=== PATIENT | male | born 1935 | race Caucasian/White ===

== ENCOUNTER 2017-02-09 10:09 | Inpatient (IN) ==
[2017-02-09] MEDS ORDERED: SALINE FLUSH 10ml SYRINGE IVF PRN (10:37)
[2017-02-09] MEDS: SALINE FLUSH 10ml SYRINGE IVF PRN (10:39)
--- NOTE | 2017-02-09 11:05 | Emergency Department Report ---
General Adult HPI - General Chief complaint: Chest Pain Stated complaint: cp Time Seen by Provider: 02/09/17 10:15 Source: patient, family Mode of arrival: ambulatory Limitations: no limitations - History of Present Illness HPI narrative: 81-year-old male presents to the emergency department with a chief complaint of intermittent episodes of chest discomfort. Patient states that he 1st began expressing these episodes in 2013 and they have become more frequent. Patient is currently asymptomatic. Patient states that his pain improves with nitroglycerin. Patient describes the pain as a sharp pain that is located in the lower center chest without radiation. Patient is currently being worked up for anemia secondary to GI bleeding by Dr. Holland. Patient was transfused 1 unit of packed red blood cells yesterday and has returned to his pre- transfusion hemoglobin level and less than 12 hours. Patient notes saying dark colored stool with bright red blood noted a few days ago. He states of bright red blood has resolved. No other complaints or associated symptoms. - Related Data Home Medications Medication Instructions Recorded Confirmed Levothyroxine Sodium 88 mcg PO ACB #0 tab 09/09/14 02/09/17 Tamsulosin HCl 0.4 mg PO HS #0 cap 09/09/14 02/09/17 Nitroglycerin [Nitrostat] 0.4 mg SL Q5MIN PRN #0 tab 11/08/15 02/09/17 Aspirin [Aspir 81] 1 tab PO DAILY #90 tab 11/22/15 02/09/17 diltiazem ER 180 mg 180 mg PO BID cap 02/07/17 02/09/17 capsule,extended release furosemide 20 mg tablet 20 mg PO QAM 02/07/17 02/09/17 Fluticasone Nasal [place] [Flonase] 1 spray LISA DAILY PRN 02/09/17 02/09/17 Allergies Allergy/AdvReac Type Severity Reaction Status Date / Time Penicillins Allergy Unknown Verified 02/09/17 10:49 Sulfa (Sulfonamide Allergy Unknown Verified 02/09/17 10:49 Antibiotics) citric acid AdvReac Intermediate Verified 02/09/17 10:49 caffeine AdvReac Verified 02/09/17 10:49 milk AdvReac Verified 02/09/17 10:49 Review of Systems Constitutional: Denies: fever, chills Eyes: Denies: eye discharge, vision change ENT: Denies: ear pain, throat pain Cardiovascular: Reports: chest pain (resolved.). Denies: palpitations, dyspnea on exertion Respiratory: Denies: cough, dyspnea Gastrointestinal: Denies: abdominal pain, nausea, vomiting, diarrhea, hematemesis Genitourinary: Denies: urgency, dysuria Musculoskeletal: Denies: back pain, joint swelling Integumentary: Denies: erythema, rash Neurological: Denies: headache, numbness, paresthesias Psychiatric: Denies: anxiety, depression, suicidal thoughts Endocrine: Denies: fatigue, heat or cold intolerance Hematological/Lymphatic: Denies: easy bleeding, easy bruising Allergic/Immunologic: Denies: facial swelling, urticaria PFSH Patient Stated Medical History Cataracts Yes: BILATERAL Hearing Loss Yes Gastrointestinal Bleeding Yes Hx Benign Prostatic Yes Hyperplasia Clinic Medical History (Last Updated 02/09/17 @ 14:30 by Marco Cheatham DO) GERD (gastroesophageal reflux disease) (Acute Medical) Coronary artery disease Surgical History: 1) Hernia Repair 2001. 2) Open Heart Surgery - 08/19. 3) Heart Millie - 08/19/2014 Family History: Family History Mother Diabetes Heart attack Heart failure HTN (hypertension) High cholesterol Sister Diabetes Smoking status: Former smoker Substance use type: does not use Alcohol intake frequency: does not drink Physical Exam - Limitations Limitations: no limitations - General General appearance: alert, in no apparent distress - Normal Exams: Head:: Normocephalic without trauma Eyes:: Pupils are PERRLA w/ EOMI, No scleral icterus, irritation, or foreign bodies noted ENMT:: No facial trauma, nasal exudates, pharyngeal erythema, or exudates are noted Dental: No fractured, loose, or missing teeth noted Neck:: Full range of motion, without adenopathy, JVD, bruits or thyromegaly Chest/Respirations:: Clear all mccollum, with good airflow, and symmetry bilaterally Cardiovascular:: Regular rate and rhythm, without murmur or gallop, Pulses 2+ all extremities, capillary refill, <2 seconds all extremities Abdomen:: Bowel sounds positive, soft, non-tender, non-distended, no hepatosplenomegaly, masses or bruits noted Lymphatic:: No lymphadenopathy, or lymphedema noted Musculoskeletal:: No tenderness, or deformity noted, good range of motion, all extremities Integumentary:: No rashes, hives, or bruising noted, hair and nails, without abnormality Neurological:: Patient is alert, and oriented, cranial nerves, motor/sensory/ cerebellar, exams w/o gross deficits, to observation Psychiatric:: Patient exhibits, appropriate attention, emotion and affect Course Course Narrative: Dr. Holland presents to the emergency department to evaluate the patient. Dr. Holland performs rectal exam which contained dark tarry stool with heme-positive characteristic. He remains pain-free in the emergency department. Protonix 40 mg IV times one was given. Patient is discussed with his powered bridge specialist both cardiology (Dr. Perez) and general surgery both recommended admission to the hospital to Dr. Fuller the hospitalist with them as consultants. Patient is in agreement with the current plan of management. He is admitted to the hospital in improved condition. Aspirin was not given due to the acute GI bleeding. Patient's EKG is unchanged from comparison EKG. His troponin is negative. He' ll be admitted to the hospital for further evaluation and treatment. Vital Signs Temperature 97.8 F 02/09/17 10:13 Pulse Rate 97 02/09/17 10:13 Respiratory Rate 16 02/09/17 10:13 Blood Pressure 163/72 H 02/09/17 10:13 Pulse Oximetry 96 02/09/17 10:13 Temperature 97.8 F 02/09/17 11:25 Pulse Rate 94 02/09/17 13:45 Respiratory Rate 25 H 02/09/17 13:45 Blood Pressure 157/78 H 02/09/17 12:04 Pulse Oximetry 98 02/09/17 13:45 Medical Decision Making - MDM Narrative Medical decision making narrative: Labs/imaging were discussed in detail with the patient and family and questions are answered. Patient is given Protonix 40 mg IV 1 in the emergency Department. Patient remains pain-free during his emergency department stay. Patient is admitted to the service of the hospitalist Dr. Fuller after who is in agreement with the current plan of management. Patient was discussed with Dr. Holland of general surgery as well as Dr. Perez of cardiology both who recommends admission to the hospitalist and they will see the patient in consultation. Aspirin was not able to be given due to the patient's active GI bleed. Accepting and consulting physicians are in agreement with the current plan of management. Patient is admitted to the hospital in improved condition for further evaluation and treatment. - Differential Diagnosis ACS, Chest Pain, GI BLEED, PUD - Lab Data Result diagrams: 02/09/17 10:39 02/09/17 10:39 Lab Results 02/09/17 02/09/17 02/09/17 Range/Units 10:38 10:39 10:39 WBC 11.9 H (4.5-11.0) T/MM3 RBC 2.41 L (4.50-5.90) M/MM3 Hgb 7.3 L (13.5-17.5) GM/DL Hct 22.9 L (41-53) % MCV 95.0 (80-100) UM3 MCH 30.3 (26-34) UUG MCHC 31.9 (31-37) GM/DL RDW Std Deviation 46.0 (36.9-50.2) FL Plt Count 185 (130-400) T/MM3 MPV 9.9 (9.4-12.4) UM3 Immature Gran % (Auto) 2.1 H (0.0-0.5) % Neut % (Auto) 68.0 H (33-66) % Lymph % (Auto) 19.0 L (23-45) % Cache % (Auto) 7.0 (0-9.0) % Eos % (Auto) 2.9 (0-4) % Baso % (Auto) 1.0 (0-2) % Neut # 8.1 H (1.8-7.7) T/MM3 Lymph # 2.3 (1-4.8) T/MM3 Cache # 0.8 (0-0.8) T/MM3 Eos # 0.4 (0-0.5) T/MM3 Baso # 0.1 (0-0.2) T/MM3 Abs Immat Gran (auto) 0.25 H (0.00-0.03) T/MM3 INR (0.99-1.21) APTT (24-36) SEC Turbidity 20 (0-20) Sodium 145 H (134-144) MEQ/L Potassium 4.1 (3.6-5) MEQ/L Chloride 109 H (98-107) MEQ/L Carbon Dioxide 25 (22-30) MEQ/L Anion Gap 11 (5-15) MEQ/L BUN 22.0 H (9-20) MG/DL Creatinine 1.1 (0.8-1.5) MG/DL GFR Calculation 65 BUN/Creatinine Ratio 20 (6-26) RATIO Glucose 101 (75-110) MG/DL Calculated Osmolality 282 H (261-280) MOSM/KG Calcium 9.5 (8.4-10.2) MG/DL Total Bilirubin 0.30 (0.20-1.30) MG/DL Icterus Index 2 (0-7) AST 19 (17-59) U/L ALT 29 (21-72) U/L Alkaline Phosphatase 61 (38-126) U/L Troponin I 0.027 (0-0.12) ng/ml Total Protein 6.0 L (6.3-8.2) G/DL Albumin 3.7 (3.5-5.0) G/DL Globulin 2.3 L (2.4-3.6) G/DL Albumin/Globulin Ratio 1.6 (1.1-2.2) RATIO Lipase 174 (23-300) U/L Specimen Hemolysis 15 (0-25) Ur Collection Type Urine Color (YELLOW) Urine Clarity Urine pH (5.0-8.0) Ur Specific [place] (1.015-1.025) Urine Protein (NEGATIVE) Urine Glucose (UA) (NEGATIVE) Urine Ketones (NEGATIVE) Urine Occult Blood (NEGATIVE) Urine Nitrate (NEGATIVE) Urine Bilirubin (NEGATIVE) Urine Urobilinogen (NORMAL) EU/DL Ur Leukocyte Esterase (NEGATIVE) Urinalysis Comment 02/09/17 02/09/17 Range/Units 10:39 10:55 WBC (4.5-11.0) T/MM3 RBC (4.50-5.90) M/MM3 Hgb (13.5-17.5) GM/DL Hct (41-53) % MCV (80-100) UM3 MCH (26-34) UUG MCHC (31-37) GM/DL RDW Std Deviation (36.9-50.2) FL Plt Count (130-400) T/MM3 MPV (9.4-12.4) UM3 Immature Gran % (Auto) (0.0-0.5) % Neut % (Auto) (33-66) % Lymph % (Auto) (23-45) % Cache % (Auto) (0-9.0) % Eos % (Auto) (0-4) % Baso % (Auto) (0-2) % Neut # (1.8-7.7) T/MM3 Lymph # (1-4.8) T/MM3 Cache # (0-0.8) T/MM3 Eos # (0-0.5) T/MM3 Baso # (0-0.2) T/MM3 Abs Immat Gran (auto) (0.00-0.03) T/MM3 INR 1.00 (0.99-1.21) APTT 28.6 (24-36) SEC Turbidity (0-20) Sodium (134-144) MEQ/L Potassium (3.6-5) MEQ/L Chloride (98-107) MEQ/L Carbon Dioxide (22-30) MEQ/L Anion Gap (5-15) MEQ/L BUN (9-20) MG/DL Creatinine (0.8-1.5) MG/DL GFR Calculation BUN/Creatinine Ratio (6-26) RATIO Glucose (75-110) MG/DL Calculated Osmolality (261-280) MOSM/KG Calcium (8.4-10.2) MG/DL Total Bilirubin (0.20-1.30) MG/DL Icterus Index (0-7) AST (17-59) U/L ALT (21-72) U/L Alkaline Phosphatase (38-126) U/L Troponin I (0-0.12) ng/ml Total Protein (6.3-8.2) G/DL Albumin (3.5-5.0) G/DL Globulin (2.4-3.6) G/DL Albumin/Globulin Ratio (1.1-2.2) RATIO Lipase (23-300) U/L Specimen Hemolysis (0-25) Ur Collection Type Urine, clean catch Urine Color Yellow (YELLOW) Urine Clarity Clear Urine pH 5.5 (5.0-8.0) Ur Specific [place] 1.015 (1.015-1.025) Urine Protein Negative (NEGATIVE) Urine Glucose (UA) Negative (NEGATIVE) Urine Ketones Negative (NEGATIVE) Urine Occult Blood Negative (NEGATIVE) Urine Nitrate Negative (NEGATIVE) Urine Bilirubin Negative (NEGATIVE) Urine Urobilinogen 0.2 (NORMAL) EU/DL Ur Leukocyte Esterase Negative (NEGATIVE) Urinalysis Comment Microscopic not ind. - Radiology Data CXR - Negative. - EKG Data EKG #1 EKG results narrative: Sinus rhythm. 71 bpm. Left bundle branch block. Left axis deviation. No STEMI criteria. EKG is unchanged from 11/22/2015. Disposition Clinical Impression: Chest pain Qualifiers: Chest pain type: other chest pain Qualified Code(s): R07.89 - Other chest pain GI bleed Qualifiers: GI bleed type/associated pathology: unspecified gastrointestinal hemorrhage type Qualified Code(s): K92.2 - Gastrointestinal hemorrhage, unspecified Disposition: 02 To [facility] [place] Acute Care Condition: Improved Time of Disposition: 11:45 (Admit: Dr. Fuller) - Seen By: physician
[2017-02-09] MEDS ORDERED: PANTOPRAZOLE 40 MG INJECTION IVP ONE (12:54)
[2017-02-09] MEDS ORDERED: ONDANSETRON 4 MG/2 ML INJECTION IVP PRN (14:18)
[2017-02-09] MEDS ORDERED: NITROGLYCERIN 0.4 MG SUBLINGUAL TABLET SL PRN ×2 (14:29→18:43)
[2017-02-09] MEDS ORDERED: FLUTICASONE NASAL SPRAY 50mcg EA NOSTRIL PRN (14:29)
--- NOTE | 2017-02-09 15:55 | History & Physical Report ---
<Heena Sunshine - Last Filed: 02/09/17 15:23> History of Present Illness Date: 02/09/17 1523 Chief complaint: GI bleed HPI: Jeffrey Moore is a pleasant 81-year-old male who presented to [facility] [place], [place] emergency department today, 02/09/17, for evaluation of intermittent chest pain and bloody stools. He reports that on 02/04/17 he had multiple, bright red liquid stools which progressively got darker in color as the day progressed. He was seen by his PCP, Dr. Edwards, on 02/05 and it was determined that he needed endoscopy. He then saw Dr. Holland on 02/07 for evaluation for endoscopy and underwent a thorough evaluation including labs in which he reportedly had a hemoglobin of 7, per the patient. He received a blood transfusion of 1 unit on 02/08. Last evening he states he was feeling better and went for a late dinner with his daughter at an [place] restaurant. Around 1230 am this morning, he began having severe, intermittent chest pain which would occasionally radiate to his right back, below the right shoulder. He reports that his pain is burning in nature and span across his epigastric region extending into his mid chest. He states that he 1st began expressing similar symptoms and chest pain in 2013 and since that time, the episodes of pain have become more frequent. He has a significant history of CAD with stent placement in 2002 and CABG x 3 in 2013. He states that his chest pain currently is different than the chest pain he experienced when he had his NE prior to his stent placement in 2002. He reports that his pain is worse with stress and walking as well as laying down after eating past 6pm. Prior evaluation for his chest pain lead to a conclusion of esophageal spasms. Last EGD in 2015 showed mild gastritis. Over the past few years, he has found that nitroglycerin improves his chest pain. When he began experiencing chest pain last night, he took a nitro about every hour until he presented to the ED for further evaluation this morning, totalling about 9 tabs. He reports that his bloody stools have improved and only admits to 1 formed stool which he states was blood streaked this AM. He denies any recent illness, chills, headache, shortness of breath, nausea, vomiting or dysuria. He does admit to lightheadedness, generalized weakness and fatigue which has since resolved following his blood transfusion on 02/08. He also admits to chronic urinary frequency with small amounts secondary to his BPH. He denies any known fevers but admits that his temperature was elevated to 99 on 02/04. Upon arrival to the ED, documentation notes that he was asymptomatic. Labs were obtained and revealed leukocytosis with WBC 11.9, anemia with hemoglobin 7.3, platelets 185. Hypernatremia with sodium 145, potassium 4.1, elevated BUN 22, SCr 1.1 and glucose 101. UA was unremarkable. Chest x-ray was obtained and unremarkable. He was given Protonix in ED which he reports made him nauseous. Due to his reported GI bleed and acute anemia, Dr. Brice was consulted and Mr. Moore was accepted as an in-patient into the ICU for further evaluation, close monitoring for cardiac stability as well as deterioration secondary to acute bleed, IV fluids and surgical evaluation with expected endoscopy. His length of stay is expected to exceed more than 2 over nights. On exam, Mr. Moore is seen shortly after his arrival in ICU. He appears very anxious and starts complaining of nausea with dry heaves and spitting which improves with sitting completely upright and Zofran 4mg IV. Throughout the exam , he complains of chest pain and burning which radiates to his right mid back, inferior to his right shoulder and is not reproducible with palpation. He is given Ativan 0.5mg IV which quickly appears to make him more comfortable and he admits that his pain decreased to 2/10 with the ativan. Vital signs in ICU show hypertension with blood pressure 182/81, tachycardia heart rate 103, pulse ox 95% on room air. He frequently changes position in bed, moving the head of the bed up and down, seeking a more comfortable position, which he finds for shorts periods of time. Cardiac exam reveals tachycardia with S1 and S2 and prominent murmur noted. He has a history of bioprostetic aortic valve replacement in 2013. Lung sounds are clear to auscultation bilaterally. Abdomen is soft, distended and nontender with palpation. When asked where his pain is, he points to his epigastric region and upper abdomen. Hypoactive bowel sounds noted. 1+ edema noted to bilateral lower extremities with 2+ pedal pulses. He is alert, orientated and appears anxious on exam but is pleasant and cooperative. Review of Systems - Constitutional Constitutional: Present: fatigue, weakness (generalized). Absent: chills, fever (s), headache(s) - EENMT Eyes: Absent: blurry vision, dry eye, loss of vision, photophobia, requires corrective lenses Ears: Present: other (hard of hearing - chronic) Balance: Absent: vertigo, falling to one side Nose: Present: allergies. Absent: nosebleeds Mouth/Throat: Absent: pain, sore throat, changes in swallowing - Cardiovascular Cardiovascular: Present: chest pain, dyspnea on exertion, edema, heart murmur. Absent: palpitations, syncope Vascular: Present: pedal edema. Absent: pallor of an extermity, unilateral swelling - Respiratory Respiratory: Present: dyspnea on exertion. Absent: cough, dyspnea, hemoptysis, wheezing, pain on inspiration, chest congestion - Gastrointestinal Gastrointestinal: Present: abdominal pain, hematochezia, nausea. Absent: change in bowel habits, constipation, hematemesis, vomiting - Genitourinary Genitourinary: Present: urinary frequency, urinary urgency. Absent: dysuria, hematuria - Musculoskeletal Musculoskeletal: Present: back pain, muscle weakness. Absent: deformity, joint swelling, limited range of motion - Integumentary/Breasts Integumentary: Absent: erythema, rash - Neurological Neurological: Present: weakness. Absent: confusion, dizziness, headache(s), numbness - Psychiatric Psychiatric: Present: anxiety - Endocrine Endocrine: Absent: palpitations - Hematologic/Lymphatic Hematologic/Lymphatic: Absent: easy bleeding PFSH 1. Hypertension. 2. BPH. 3. GERD. 4. History of gastritis. 5. Overweight. 6. Hypothyroidism. 7. History of cataracts. 8. Anxiety. 9. Seasonal rhinitis. 10. CAD. 11. History of NE - 2002. Surgical History: 1) Hernia Repair x2 - 93, 2001. 2) Open Heart Surgery - 08/19. 3) Heart Millie - 08/19/2014 Family History: Family History Mother Diabetes Heart attack Heart failure HTN (hypertension) High cholesterol Sister Diabetes Smoking status: Former smoker Quit date: 03/11/17 Substance use type: does not use Alcohol intake: current Alcohol intake frequency: 0-2 drinks per day (1 pint [place]/week; 3-4 beers couple times a week.) Last drink: days (ago) (7) Housing: house Household members: none service: No Current occupational status: retired Does patient use chewing tobacco?: No Medications Home Medications Medication Instructions Recorded Confirmed Type Levothyroxine Sodium 88 mcg PO ACB #0 tab 09/09/14 02/09/17 History Tamsulosin HCl 0.4 mg PO HS #0 cap 09/09/14 02/09/17 History Nitroglycerin [Nitrostat] 0.4 mg SL Q5MIN PRN #0 tab 11/08/15 02/09/17 History Aspirin [Aspir 81] 1 tab PO DAILY #90 tab 11/22/15 02/09/17 History diltiazem ER 180 mg 180 mg PO BID cap 02/07/17 02/09/17 History capsule,extended release furosemide 20 mg tablet 20 mg PO QAM 02/07/17 02/09/17 History Fluticasone Nasal [place] [Flonase] 1 spray LISA DAILY PRN 02/09/17 02/09/17 History Allergies Allergy/AdvReac Type Severity Reaction Status Date / Time Penicillins Allergy Unknown Verified 02/09/17 10:49 Sulfa (Sulfonamide Allergy Unknown Verified 02/09/17 10:49 Antibiotics) citric acid AdvReac Intermediate Verified 02/09/17 10:49 caffeine AdvReac Verified 02/09/17 10:49 milk AdvReac Verified 02/09/17 10:49 Exam Vital Signs: Temp Pulse Resp BP Pulse Ox 97.8 F 94 25 H 186/86 H 98 02/09/17 14:34 02/09/17 14:34 02/09/17 14:34 02/09/17 14:34 02/09/17 14:34 Telemetry Rhythm: Sinus Tachycardia Height: 5 ft 9 in Weight: 88 kg Comments: Overweight. - Constitutional Present: mild distress, well nourished, well developed, cooperative. Absent: diaphoretic Comments: anxious - Routine HEENT Exam Head: Present: normocephalic, atraumatic Eye: Present: PERRL. Absent: conjunctival icterus ENT: Present: mucous membranes moist - Routine Neck Exam Present: supple, full ROM, trachea midline. Absent: tenderness, swelling, tracheal deviation - Routine Chest/Breast/Axilla Exam Chest wall: Absent: tenderness - Routine Respiratory Exam Present: CTA bilaterally. Absent: accessory muscle use, rales, respiratory distress, rhonchi, stridor, wheezes, crackles - Routine Cardiovascular Exam Present: RRR, S1, S2, murmur - Routine Abdominal Exam Present: soft, distended. Absent: tenderness, rebound, guarding, firm, rigid, wound - Detailed Abdominal Exam Bowel sounds: hypoactive Palpation/Percussion: Absent: Lorenzo's sign - Routine Extremities Exam Present: edema (1+ bilateral lower extremity), non tender, full ROM, pulses intact. Absent: cyanosis, clubbing, calf tenderness - Routine Back/Spine/Pelvis Exam Back/Spine: Present: full ROM. Absent: CVA tenderness, vertebral tenderness, erythema, warmth Comments: pain to mid back inferior to right shoulder blade; unable to reproduce with palpation. - Routine Skin Exam Present: intact, dry, warm. Absent: cyanosis, erythema, wounds, rash Comments: afebrile. - Routine Neurological Exam Present: alert, oriented X3, moving all extremities, hearing grossly intact, normal speech - Routine Psychiatric Exam Present: cooperative, anxious Results - Labs CBC & Chem 7: 02/09/17 10:39 02/09/17 10:39 Assessment and Plan (1) GI bleed Current visit: Yes Status: Acute (2) Anemia associated with acute blood loss Current visit: Yes Status: Acute present on admission - Hgb 7.3. (3) Leukocytosis, unspecified Current visit: Yes Status: Acute present on admission - WBC 11.9. (4) Acute hypernatremia Current visit: Yes Status: Acute present on admission - sodium 145. (5) GERD (gastroesophageal reflux disease) Current visit: Yes Status: Chronic (6) CAD (coronary artery disease) Current visit: Yes Status: Chronic (7) Hx of CABG Current visit: Yes Status: Chronic (8) History of aortic valve replacement with bioprosthetic valve Current visit: Yes Status: Chronic x3 in 2013; Monument Installer - Dr. Perez (9) History of NE (myocardial infarction) Current visit: Yes Status: Chronic 2002; Monument Installer - Dr. Perez. (10) Hypothyroidism Current visit: Yes Status: Chronic (11) Anxiety Current visit: Yes Status: Chronic (12) BPH (benign prostatic hyperplasia) Current visit: Yes Status: Chronic (13) Allergic rhinitis Current visit: Yes Status: Chronic (14) Overweight (BMI 25.0-29.9) Current visit: Yes Status: Chronic BMI 28.6. (15) Hypertension Current visit: Yes Status: Chronic DVT Prophylaxis: SCD's GI Prophylaxis: Protonix Assessment and Plan: 02/09/17: Bita. ADMIT. Assessment - 81 year old male admitted for evaluation of acute GI bleed and symptomatic anemia. Bright red blood in stools x 5 days and intermittent chest and abdominal pain which radiates to right mid back and is burning in sensation. Seen by Dr. Holland on 02/07 and found to be anemia. Underwent outpatient blood transfusion on 02/08. Worsening central chest and abdominal pain temporarily relieved with nitro prior to arrival to ED. Plan - 1. GI Bleed, acute - * Admit to ICU under the care of Dr. Brice for acute GI bleed, anemia and chest pain. * Consult Dr. Holland for surgical evaluation and anticipated endoscopy in light of acute GI bleed and symptomatic anemia. Patient has history of gastritis and GERD but does not currently take anything at home, despite recommendations by Dr. Perez and Dr. Edwards. Will discuss with Dr. Brice anticipated treatment plan as he discussed with Dr. Holland. * Patient received Protonix 40mg IV x 1 dose in ED. Will continue Protonix 40mg IV BID in light of GI bleed and GERD symptoms. * Monitor closely on telemetry in light of complaint of chest pain, though patient states pain is not similar to prior chest pain related to cardiac source. Patient underwent heart cath in 2016 which was "normal". Patient follows with Dr. Perez. * Morphine 1-2mg IV Q2H PRN chest pain. * NPO after midnight with clear liquids until then. * Will obtain 2. Anemia, acute, most likely secondary to acute bleeding - * Patient underwent outpatient blood transfusion x 1 on 02/08. Anemia noted on admission with hemoglobin at 7.3. Type and cross now and give 1 unit. Monitor hemoglobin closely and recheck in 8 hours. Monitor closely for signs of acute bleeding. 3. Leukocytosis, acute, present on admission - * WBC on admission was elevated at 11.9. Most likely secondary to stress response, though acute infection can not be excluded. Patient remains afebrile with no acute infectious symptoms. Monitor temperature closely and will recheck CBC in AM to monitor blood counts and trends. * In light of pain radiation to right shoulder, concerning for gall bladder, will obtain abdominal ultrasound for evaluation of liver and gallbladder. * Will obtain stool cultures in light of blood and leukocytosis. 4. Hypernatremia and hyperosmolality, acute, present on admission - * Sodium elevated to 145 on admission most likely secondary to mild dehydration and acute blood loss. Initiate NS 100cc/hr for fluid resuscitation, especially in light of NPO status. * Recheck BMP in AM to monitor electrolytes and renal function. BUN slightly elevated at 22 on admission with SCr 1.1. 5. Hypertension, chronic - * Elevated on admission, most likely secondary to anxiety and situation. Continue to monitor closely. * Continue home medications including Lasix and diltiazem. 6. GERD - * Patient denies taking home medication for GERD. Initiate Protonix 40mg IV BID for GI bleed and GERD symptoms. 7. CAD with CABG x 3 and bioprostetic aortic valve replacement in 2013 and stent x 1 placement in 2002 - * Nursing record states that patient was taking ASA 81mg daily at home, though patient denies. Will hold on ASA currently in light of current GI bleed. * Nitro PRN chest pain. * Patient's heavy threader is Dr. Perez. Will consult per Dr. Holland request in light of extensive cardiac history. 8. Anxiety - acute on chronic * Ativan 0.5mg Q6H PRN anxiety. 9. Hypothyroid - chronic. * Continue home synthroid and follow with Dr. Edwards as outpatient. 10. BPH, chronic - * Continue home flomax. * UA on admission was unremarkable. 11. Allergic rhinitis, chronic - * Continue home flonase. Upon discharge, patient's care will be returned to his PCP, Dr. Edwards. Sepsis Assessment - Evaluation Sepsis screening result: No Definite Risk - Focused Exam Vital Signs Temp Pulse Resp BP Pulse Ox 02/09/17 14:34 97.8 F 94 25 H 186/86 H 98 02/09/17 14:33 92 25 H 97 02/09/17 14:15 86 30 H 100 02/09/17 14:00 85 37 H 99 02/09/17 13:45 94 25 H 98 Hospital Course Summary Disclaimer: The visit summary below is not to be considered part of the above Progress Note. <Sudha Fuller - Last Filed: 02/09/17 17:37> History of Present Illness Date: [facility] Medical History (Last Updated 02/09/17 @ 17:11 by BRENDEN Hansen) GERD (gastroesophageal reflux disease) (Acute Medical) Family History: Family History Mother Diabetes Heart attack Heart failure HTN (hypertension) High cholesterol Sister Diabetes Exam Vital Signs: Temp Pulse Resp BP Pulse Ox 97.8 F 94 25 H 186/86 H 98 02/09/17 14:34 02/09/17 14:34 02/09/17 14:34 02/09/17 14:34 02/09/17 14:34 Height: 1.75 m Weight: 88 kg Results - Labs CBC & Chem 7: 02/09/17 10:39 02/09/17 10:39 Assessment and Plan (1) GI bleed Current visit: Yes Status: Acute (2) Leukocytosis, unspecified Current visit: Yes Status: Acute (3) Anemia associated with acute blood loss Current visit: Yes Status: Acute (4) Acute hypernatremia Current visit: Yes Status: Acute (5) Anxiety Current visit: Yes Status: Chronic (6) Overweight (BMI 25.0-29.9) Current visit: Yes Status: Chronic (7) BPH (benign prostatic hyperplasia) Current visit: Yes Status: Chronic (8) GERD (gastroesophageal reflux disease) Current visit: Yes Status: Chronic (9) Hypothyroidism Current visit: Yes Status: Chronic (10) Allergic rhinitis Current visit: Yes Status: Chronic (11) CAD (coronary artery disease) Current visit: Yes Status: Chronic (12) History of NE (myocardial infarction) Current visit: Yes Status: Chronic (13) History of aortic valve replacement with bioprosthetic valve Current visit: Yes Status: Chronic (14) Hx of CABG Current visit: Yes Status: Chronic (15) Hypertension Current visit: Yes Status: Chronic Assessment and Plan: S: Pt reports his cp is gone and he currently feels good. Denies any n/v/d, f/c , sob. O: Gen: no distress, alert and oriented Cards: RRR with diastolic murmur Resp: CTAB, no wheezing Ext: LE swelling 1+ pitting edema bilaterally A/P: GI Bleed -Likely upper but does report hematochezia, PUD vs. Gastritis vs. Heyde syndrome ?? (although usually with ) -Will do IV PPI BID, clear liquid diet then npo at midnight per -Will give 1u pRBC and trend H&H Pt was seen and examined independently and plan of care was discussed with MIXING MACHINE OPERATOR/ ADMISSION NURSE. Sepsis Assessment - Focused Exam Vital Signs Temp Pulse Resp BP Pulse Ox 02/09/17 14:34 97.8 F 94 25 H 186/86 H 98 02/09/17 14:33 92 25 H 97 02/09/17 14:15 86 30 H 100 02/09/17 14:00 85 37 H 99 02/09/17 13:45 94 25 H 98 Hospital Course Summary Disclaimer: The visit summary below is not to be considered part of the above Progress Note.
[2017-02-09] MEDS: NS 1,000 ML IV SCH (16:08)
--- NOTE | 2017-02-09 16:11 | Consultation ---
DATE OF CONSULTATION 02/09/2017 HISTORY This patient is 81 years old. This patient did undergo total colonoscopy with polypectomy on 12/03/[address] Watts at [facility]. 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 The patient was seen at the emergency room at [facility] with rectal bleeding on 09/09/2014. The rectal bleeding which the patient was experiencing at that time was thought to be from an internal hemorrhoid. This was bright- red rectal bleeding. The patient had experienced a single episode of bright- red rectal bleeding at that time. The patient did have a CBC performed on 11/07/2016. Hemoglobin was 14.8 and hematocrit was 45 at that time. The patient states that he experienced the onset of some rectal bleeding at noon on 02/04/2017. This was bright-red rectal bleeding at first. The patient continued to have some rectal bleeding on 02/05/2017. This was more of a burgundy color. The blood had a darker color. The patient did have an office visit with Dr. Edwards on 02/05/2017 regarding the rectal bleeding. A CBC was performed on 02/05/2017. Hemoglobin was 11.3. Hematocrit was 35. Dr. Edwards did refer the patient to Dr. Holland at this time to undergo colonoscopy for evaluation of the rectal bleeding. The patient states he experienced more rectal bleeding on 02/06/2017. The patient had another office visit with Dr. Edwards on 02/06/2017. Hemoglobin was 9.4 and hematocrit was 28.6 on 02/06/2017. The patient experienced a small amount of dark-red rectal bleeding at 0200 hours on 02/07/2017. The patient did have an office visit with Dr. Holland on the afternoon of 02/07/2017. The patient reported at this time that he had not experienced any rectal bleeding for the previous 12 hours. He had not had any rectal bleeding since 0200 hours on 02/07/2017. The patient thought that the bleeding was slowing down quite a bit. The patient was having no abdominal pain at this time. CBC was repeated on 02/07/2017. Hemoglobin was 8.1. Hematocrit was 24.5. Admission to the hospital with a GI tract endoscopy was offered to the patient at this time. The patient did agree to undergo an endoscopy but did prefer to have this on an outpatient basis. The patient did agree to continue daily careful monitoring of the hemoglobin and hematocrit on a daily basis. The patient did agree to come back to [facility] Emergency Room immediately if he experienced any further increase in the rectal bleeding. Digital rectal examination by Dr. Holland at the office visit on 02/07 revealed some old black blood in the rectal vault. There were no rectal masses. There was no bright-red blood or dark-red blood. Dr. Holland did follow up with the patient by telephone on 02/08/2017. The patient reported that he had experienced no further rectal bleeding in the previous 24 hours. He thought that his rectal bleeding had now completely stopped. CBC was repeated at [facility] on 02/08/2017. Hemoglobin was 7.2 and hematocrit was 22.3. The patient was brought into [facility] for transfusion of 1 unit of packed red blood cells on 02/08/2017. Dr. oHlland followed up with the patient by telephone on the morning of 2016. The patient reported on the morning of 02/09/2017 that he had not had any further rectal bleeding during the last 24 hours. The patient did report, however, that he had experienced substernal chest pain during the previous night and had used 10 nitroglycerin tablets during the previous night. Dr. Holland did advise the patient to come to [facility] Emergency Room immediately for evaluation of the chest pain. The patient has undergone evaluation at [facility]. CBC was repeated at [facility] on 02/09/2017 during the course of this evaluation. The hemoglobin is 7.3 and hematocrit 22.9 at this time. The patient is being admitted to [facility] at this time for cardiac evaluation of the chest pain by Dr. Perez. The patient will also receive additional blood transfusion. The patient is also being admitted to undergo endoscopy for evaluation of the gastrointestinal tract bleeding. FAMILY HISTORY There is no history of any colon or rectal cancer in the family of this patient. PAST MEDICAL HISTORY PREVIOUS OPERATIONS 1. Operation at scrotum by Dr. Jeffrey Houston at a time when the patient was 55 years old at [facility] at [place], [place]. This might be some type of operation for a spermatocele. 2. Operation at the scrotum by Dr. Contreras at some time between 2002 and 2004 at [facility] at [place], [place]. 3. Total colonoscopy with polypectomy on 12/03/[address] Watts at [facility] at [place], [place]. The patient did have a tubular adenoma with focal low-grade dysplasia colon polyp removed from a level 60 cm proximal to the anal verge at this time. 4. Three-vessel coronary artery bypass operation and tissue aortic valve replacement on 08/19/[address] Velez at [facility] at [place], [place]. 5. Esophagogastroduodenoscopy with biopsies on 11/09/[address] Duane Gagnon at [facility] at [place], [place]. Postoperative diagnoses were epigastric abdominal pain and mild gastritis. Biopsies of the duodenum showed no abnormalities. Biopsies of the gastric antrum showed minimal chronic mucosal inflammation. 6. Cardiac catheterization on 11/22/[address] Kd Perez at [facility] at [place], [place]. The patient had coronary artery disease. There was 70-80% stenosis of the proximal and mid left anterior descending coronary artery. The patient also was known at the time of this procedure to have significant aortic regurgitation based on echocardiogram findings. One discharge diagnosis for this hospitalization was nitroglycerin-responsive chest pain. Other another discharge diagnosis was coronary artery disease status post coronary artery bypass graft x 3 in 2013. Another discharge diagnosis was tissue aortic valve replacement with significant aortic valve regurgitation. Another discharge diagnosis was mild congestive heart failure (diastolic/ valvular). OTHER CURRENT MEDICAL PROBLEMS 1. Coronary artery disease. 2. Status post aortic valve replacement. 3. Significant aortic valve regurgitation. 4. Mild congestive heart failure (diastolic/valvular). 5. Hypothyroidism. 6. Benign prostatic hypertrophy. SOCIAL HISTORY The patient lives in [place], [place]. The patient is retired. The patient is . The patient did smoke cigarettes in the past. He quit smoking cigarettes 44 years ago. He does not smoke cigarettes now. CURRENT MEDICATIONS CURRENT MEDICATIONS 1. Diltiazem ER 180 mg one extended-release capsule p.o. b.i.d. 2. Levothyroxine 88 mcg one tablet p.o. daily before breakfast. 3. Tamsulosin 0.4 mg one capsule p.o. at bedtime daily. 4. Nitroglycerin 0.4 mg sublingually p.r.n. chest pain. 5. Lasix 20 mg one p.o. daily. ALLERGY HISTORY 1. The patient states he is allergic to sulfa which causes abdominal pain. 2. The patient states he is allergic to penicillin because it makes yeast grow in his body. PHYSICAL EXAMINATION VITAL SIGNS: Temperature is 97.8 degrees oral. Pulse is 94. Respiratory rate is 25. Blood pressure is 157/78. Oxygen saturation is 98% on room air. Height is 1.75 meters. Weight is 88 kg. BMI is 28.6 kg/m2. HEENT: No abnormality is noted. NECK: No neck masses. CHEST: Lung sounds are clear. The patient does have an old median sternotomy incision scar. HEART: Regular rhythm. No murmurs. ABDOMEN: No abdominal masses. No abdominal tenderness at this time. RECTUM: No rectal masses. The patient has some old black blood in the rectal vault. No bright-red blood or dark-red blood anywhere. No obvious hemorrhoids. EXTREMITIES: No abnormality is noted. LABORATORY DATA The patient has had CBC results as listed above in the History of Present Illness section of this consultation report. Hemoglobin was 7.3 and hematocrit was 22.9 this morning at evaluation in the emergency room. IMPRESSION 1. Acute gastrointestinal tract bleeding. 2. Acute blood loss anemia from gastrointestinal tract bleeding. 3. Personal history of tubular adenoma colon polyp. 4. Coronary artery disease. 5. Status post aortic valve replacement. 6. Significant aortic valve regurgitation. 7. Mild congestive heart failure (diastolic/valvular). 8. Hypothyroidism. 9. Benign prostatic hypertrophy. RECOMMENDATION I agree with the plan to admit the patient to [facility] at this time for cardiac evaluation and blood transfusion. I would recommend the patient undergo gastrointestinal tract endoscopy during this hospitalization. The patient can be scheduled for esophagogastroduodenoscopy tomorrow. PATIENT EDUCATION I have informed the patient of the nature of an esophagogastroduodenoscopy procedure as well as a colonoscopy procedure. Expected benefits have been explained to the patient. Alternatives have been explained. Potential risks and complications have also been explained to the patient including anesthetic risk, aspiration, hypoxia, cardiac risk, bleeding, colon perforation and missed lesions. Questions have been solicited from the patient. All of his questions have been answered. The patient does wish to proceed. RAYNE
[2017-02-09] MEDS: MORPHINE SULFATE 2 MG SYRINGE IVP PRN (18:15)
--- NOTE | 2017-02-09 20:19 | Cardiology Consult Note ---
[facility] Patient Stated Medical History Cataracts Yes: BILATERAL Hearing Loss Yes Gastrointestinal Bleeding Yes Hx Benign Prostatic Yes Hyperplasia Clinic Medical History (Last Updated 02/09/17 @ 17:11 by BRENDEN Hansen) GERD (gastroesophageal reflux disease) (Acute Medical) Surgical History: 1) Hernia Repair 2001. 2) Open Heart Surgery - 08/19. 3) Heart Millie - 08/19/2014 Family History: Family History Mother Diabetes Heart attack Heart failure HTN (hypertension) High cholesterol Sister Diabetes Smoking status: Former smoker Medications Home Medications Medication Instructions Recorded Confirmed Type Levothyroxine Sodium 88 mcg PO ACB #0 tab 09/09/14 02/09/17 History Tamsulosin HCl 0.4 mg PO HS #0 cap 09/09/14 02/09/17 History Nitroglycerin [Nitrostat] 0.4 mg SL Q5MIN PRN #0 tab 11/08/15 02/09/17 History Aspirin [Aspir 81] 1 tab PO DAILY #90 tab 11/22/15 02/09/17 History diltiazem ER 180 mg 180 mg PO BID cap 02/07/17 02/09/17 History capsule,extended release furosemide 20 mg tablet 20 mg PO QAM 02/07/17 02/09/17 History Fluticasone Nasal [place] [Flonase] 1 spray LISA DAILY PRN 02/09/17 02/09/17 History Allergies Allergy/AdvReac Type Severity Reaction Status Date / Time Penicillins Allergy Unknown Verified 02/09/17 10:49 Sulfa (Sulfonamide Allergy Unknown Verified 02/09/17 10:49 Antibiotics) citric acid AdvReac Intermediate Verified 02/09/17 10:49 caffeine AdvReac Verified 02/09/17 10:49 milk AdvReac Verified 02/09/17 10:49 Exam Vital signs: Temp Pulse Resp BP Pulse Ox 98.5 F 94 25 H 186/86 H 98 02/09/17 16:06 02/09/17 14:34 02/09/17 14:34 02/09/17 14:34 02/09/17 14:34 Results 02/09/17 10:39 02/09/17 10:39 Intake and Output 02/09/17 02/09/17 02/09/17 06:59 14:59 22:59 Intake Total 395.000 / 395.000 Output Total 250 / 250 Balance 145.000 / 145.000 Intake: IV 395.000 / 395.000 Normal Saline 1,000 ml @ 395.000 / 395.000 100 mls/hr IV .Q10H JEM Rx#:[id number] Oral 0 / 0 Output: Urine 250 / 250 Hospital Course Summary Disclaimer: The visit summary below is not to be considered part of the above Progress Note. Hospital Course: 02/09/17 20:14 pt not seen in office since 2015. atypical CP chronic and atypical ,most likely GI CAD with patent bypasses x3 angiogram 11/2015 tissue AVR with chronic 3+ regurgitation ,pt declined interevnetion and appears compensatesd and stable CHF / LBBB /mild CMP volume mildly up (B LE edema ,clear chest ) acute GI bleed should be low risk for EGD tomorrow monitor fluid status closely medical Rx for stable chronic CAD and AI keep HGB >8 with cardiac disease. please will follow along thanks Sepsis Assessment - Evaluation Sepsis screening result: No Definite Risk - Focused Exam Vital Signs Temp Pulse Resp BP Pulse Ox 02/09/17 16:06 98.5 F 02/09/17 14:34 97.8 F 94 25 H 186/86 H 98 02/09/17 14:33 92 25 H 97 02/09/17 14:15 86 30 H 100 02/09/17 14:00 85 37 H 99 02/09/17 13:45 94 25 H 98 Respiratory exam: Present: CTA bilaterally. Absent: accessory muscle use, rales , respiratory distress, rhonchi, stridor, wheezes, crackles Cardiovascular exam: Present: RRR, S1, S2, murmur
[2017-02-10] MEDS: PANTOPRAZOLE 40 MG INJECTION IVP SCH ×3 (00:57→21:26)
[2017-02-10] MEDS: NS 1,000 ML IV SCH ×2 (05:37→20:09)
--- NOTE | 2017-02-10 07:57 | XRay Report ---
EXAM: XR chest 1V LOCATION OF DICTATION: [place] HISTORY: Chest pain. pain COMPARISON: No prior studies available for comparison. FINDINGS: The heart size is normal. The mediastinal configuration is within normal limits. Median sternotomy wires are demonstrated. There are no consolidating opacities or pleural effusions. There is no pneumothorax. The osseous structures are within normal limits for the patient's age. IMPRESSION: No acute cardiopulmonary abnormalities demonstrated. .
--- NOTE | 2017-02-10 09:29 | Progress Note ---
Subjective: Pt denies any cp, sob, n/v/d, f/c. Pt reports he had bright red blood in BMs last night. Possibly some melena. Objective Vital signs: Temp Pulse Resp BP Pulse Ox 97.6 F 85 38 H 140/65 H 100 02/10/17 03:45 02/10/17 05:26 02/10/17 03:45 02/10/17 03:45 02/10/17 03:45 Weight: 89.9 kg - Constitutional Present: well nourished, well developed, cooperative. Absent: diaphoretic - Routine HEENT Exam Eye: Present: EOMI. Absent: scleral injection - Routine Respiratory Exam Present: CTA bilaterally. Absent: respiratory distress, wheezes, crackles - Routine Cardiovascular Exam Present: RRR, no murmur - Routine Abdominal Exam Present: soft, non tender - Routine Extremities Exam Absent: cyanosis, clubbing, edema - Routine Neurological Exam Present: alert, oriented X3 Results - Labs CBC & Chem 7: 02/10/17 04:45 02/10/17 04:45 Labs: Short CBC 02/10/17 Range/Units 04:45 WBC 11.9 H (4.5-11.0) T/MM3 Hgb 6.4 L D (13.5-17.5) GM/DL Hct 20.1 L D (41-53) % Plt Count 170 (130-400) T/MM3 BMP 02/10/17 04:45 Sodium 142 Potassium 4.2 Chloride 110 H Carbon Dioxide 23 BUN 28.0 H Creatinine 1.1 Glucose 110 Calcium 8.1 L D Cardiac Enzymes 02/10/17 Range/Units 04:45 Troponin I 0.334 H D (0-0.12) ng/ml Assessment and Plan (1) GI bleed Current visit: Yes Status: Acute (2) Leukocytosis, unspecified Current visit: Yes Status: Acute (3) Anemia associated with acute blood loss Current visit: Yes Status: Acute (4) Acute hypernatremia Current visit: Yes Status: Acute (5) Anxiety Current visit: Yes Status: Chronic (6) Overweight (BMI 25.0-29.9) Current visit: Yes Status: Chronic (7) BPH (benign prostatic hyperplasia) Current visit: Yes Status: Chronic (8) GERD (gastroesophageal reflux disease) Current visit: Yes Status: Chronic (9) Hypothyroidism Current visit: Yes Status: Chronic (10) Allergic rhinitis Current visit: Yes Status: Chronic (11) CAD (coronary artery disease) Current visit: Yes Status: Chronic (12) History of RI (myocardial infarction) Current visit: Yes Status: Chronic (13) History of aortic valve replacement with bioprosthetic valve Current visit: Yes Status: Chronic (14) Hx of CABG Current visit: Yes Status: Chronic (15) Hypertension Current visit: Yes Status: Chronic Assessment and Plan: GI Bleed -Upper vs. Lower, having both melena and hematochezia -PUD vs. Gastritis vs. Heyde syndrome?? (although usually with ) -PPI BID, EGD planned for today by -Received 1 unit pRBC last night, Hgb 6.3 this am, will give 2 additional units -Cont. to monitor H&H Type II RI/Demand Ischemia -2/2 GI bleed -Initial trop neg, second one elevated at 0.334 -Will need higher Hgb goal, likely 8-9 at least -Cont. to monitor, cards on board HTN -Pt was hypertensive on admission -Will cont. home diltiazem and monitor vitals closely Anxiety -Pt very anxious, will do 0.5mg ativan Q6H PRN Acute blood loss anemia -2/2 GI bleed -work up above, will need iron as outpatient likely Hypothyroid -Cont. home synthroid BPH -Cont. home flomax Ppx -DVT-SCD -GI-On PPI Sepsis Assessment - Evaluation Sepsis screening result: No Definite Risk - Focused Exam Vital Signs Temp Pulse Resp BP Pulse Ox 02/10/17 05:26 85 02/10/17 04:00 91 02/10/17 03:45 97.6 F 110 H 38 H 140/65 H 100 02/10/17 00:00 97.9 F 98 20 126/59 98 Respiratory exam: Present: CTA bilaterally. Absent: accessory muscle use, rales , respiratory distress, rhonchi, stridor, wheezes, crackles Cardiovascular exam: Present: RRR, S1, S2, murmur Capillary refill: < 2-3 Seconds Hospital Course Summary Disclaimer: The visit summary below is not to be considered part of the above Progress Note. Hospital Course: 02/09/2017 Pt admitted for GI bleed. Pt's Hgb has dropped from ~11 to 7 in the last 3-4 days. Pt was seen yesterday at clinic after referral from pcp for GI bleed and Hgb was found to be ~7 and one unit of blood was given as outpatient. Today at ED Hgb was still ~7 so pt was admitted for work up for GI bleed. 02/10/2017 -Pt received one unit of blood last night, Hgb this am was 6.3 so will give additional 2 units for a goal of 8-9 d/t demand ischemia. Unclear picture of upper vs. lower GI bleed, plan on EGD today and possibly colonoscopy tomorrow if no etiology is found.
--- NOTE | 2017-02-10 10:10 | Ultrasound Report ---
EXAM: US abdomen complete LOCATION OF DICTATION: [place] HISTORY: upper abdominal pain COMPARISON: No prior studies available for comparison. Multiple real-time grayscale sonographic images were obtained of the abdomen with and without color flow. FINDINGS: Limited study secondary to poor windows. Visualized portions of the head and body of the pancreas are unremarkable. The visualized portions of the aorta and IVC are unremarkable. Hepatic parenchyma is homogeneous without evidence for focal mass. The liver measures 15.06 cm.There is normal directional flow of the hepatic vasculature. Both the intra and extrahepatic biliary system are of normal caliber. The common bile duct measures 0.41 cm in maximum diameter. The gallbladder is normal. There is no wall thickening, pericholecystic fluid, sonographic Lorenzo's sign or cholelithiasis.The gallbladder wall measures 0.2 cm in maximum diameter. The kidneys are normal in size without hydronephrosis or mass. Both kidneys demonstrate normal corticomedullary differentiation. The right kidney measures 11.3 x 4.8 x 5.4 cm and left kidney measures 11.4 x 5.2 x 5.4 cm. There are bilateral renal cysts the largest measures 6.7 x 4.3 x 6.0 cm on the left. The spleen is unremarkable. The spleen measures 8.74 cm. No free fluid. IMPRESSION: 1. The liver, biliary ducts, and gallbladder are normal. 2. Bilateral renal cysts the largest involving the left kidney measuring maximum diameter of 6.7 cm. .
[2017-02-10] MEDS: MORPHINE SULFATE 2 MG SYRINGE IVP PRN ×3 (12:03→23:06)
[2017-02-10] MEDS: LEVOTHYROXINE 88 MCG TABLET PO SCH (14:54)
[2017-02-10] MEDS: FUROSEMIDE 20 MG TABLET PO SCH (14:54)
--- NOTE | 2017-02-10 16:28 | Anesthesia Preoperative Report ---
Anesthesia Preoperative Record - Date and Time Date: 02/10/17 Preoperative Diagnosis: gi bleed Proposed Procedure: EGD NPO Since Date: 02/10/17 Allergies/Adverse Reactions: Allergies Allergy/AdvReac Type Severity Reaction Status Date / Time Penicillins Allergy Unknown Verified 02/09/17 10:49 Sulfa (Sulfonamide Allergy Unknown Verified 02/09/17 10:49 Antibiotics) citric acid AdvReac Intermediate Verified 02/09/17 10:49 caffeine AdvReac Verified 02/09/17 10:49 milk AdvReac Verified 02/09/17 10:49 - Vital Signs Vital Signs: Temp Pulse Resp BP Pulse Ox 97.5 F 80 28 H 136/60 100 02/10/17 08:30 02/10/17 13:00 02/10/17 10:00 02/10/17 10:01 02/10/17 10:00 Height and Weight: Weight 89.9 kg - Medications Inpatient Medications: Current Medications Diltiazem HCl (Cardizem Cd) 180 mg PO BID [facility] Last Admin: 02/10/17 14:54 Dose: Not Given Fluticasone Propionate (Flonase) 1 spray EA NOSTRIL DAILY PRN PRN Reason: Allergy symptoms Furosemide (Lasix) 20 mg PO QAM [facility] Last Admin: 02/10/17 14:54 Dose: Not Given Sodium Chloride (Normal Saline) 1,000 mls @ 100 mls/hr IV .Q10H [facility] Last Infusion: 02/10/17 13:05 Dose: 100 mls/hr Levothyroxine Sodium (Synthroid) 88 mcg PO ACB [facility] Last Admin: 02/10/17 14:54 Dose: Not Given Lorazepam (Ativan Inj) 0.5 mg IVP Q6H PRN Last Admin: 02/10/17 03:57 Dose: 0.5 mg Morphine Sulfate (Morphine Sulfate Inj) 1 - 2 mg IVP Q2H PRN PRN Reason: Pain Last Admin: 02/10/17 12:03 Dose: 2 mg Nitroglycerin (Nitrostat) 0.4 mg SL Q5MIN PRN PRN Reason: CP Ondansetron HCl (Zofran) 4 mg IVP Q6H PRN PRN Reason: Nausea Last Admin: 02/09/17 14:25 Dose: 4 mg Pantoprazole Sodium (Protonix Iv) 40 mg IVP BID [facility] Last Admin: 02/10/17 10:50 Dose: 40 mg Sodium Chloride (Iv Flush) 10 - 80 ml IVF PRN PRN PRN Reason: Flushing Last Admin: 02/09/17 10:39 Dose: 10 ml Sodium Chloride (Iv Flush) 10 ml IVF PRN PRN PRN Reason: Flushing Last Admin: 02/09/17 12:28 Dose: 10 ml Tamsulosin HCl (Flomax) 0.4 mg PO [facility] Home Medications: Home Medications Medication Instructions Recorded Confirmed Type Levothyroxine Sodium 88 mcg PO ACB #0 tab 09/09/14 02/09/17 History Tamsulosin HCl 0.4 mg PO HS #0 cap 09/09/14 02/09/17 History Nitroglycerin [Nitrostat] 0.4 mg SL Q5MIN PRN #0 tab 11/08/15 02/09/17 History Aspirin [Aspir 81] 1 tab PO DAILY #90 tab 11/22/15 02/09/17 History diltiazem ER 180 mg 180 mg PO BID cap 02/07/17 02/09/17 History capsule,extended release furosemide 20 mg tablet 20 mg PO QAM 02/07/17 02/09/17 History Fluticasone Nasal [place] [Flonase] 1 spray LISA DAILY PRN 02/09/17 02/09/17 History Is Patient on Beta Wilder?: No Beta Wilder: No - Medical History Respiratory: Reports: Dyspnea Cardiovascular: Reports: Abnormal EKG, Angina, Arrhythmia, Coronary Artery Disease, Heart Murmur, Hypertension, Myocardial Infarction Gastrointestional: Reports: Gastroesophageal Reflux Disease, Gastrointestinal Bleeding Renal/Endocrine: Reports: Thyroid Disease - Surgical History HEENT Surgeries: Reports: Eye Surgery Cardiac Surgeries/Treatments: Reports: Coronary Artery Bypass Graft (TRIPLE), Valve Replacement GI Surgery/Treatments: Reports: Other (HEMMEROIDS) - Social History Smoking Status: Former smoker Hx Chewing Tobacco Use: No Second Hand Exposure: No Time spent discussing smoking cessation with patient: more than 10 minutes Alcohol Intake Frequency: former alcohol drinker - Pertinent Findings Laboratory: CBC and BMP 02/10/17 14:22 02/10/17 04:45 BMP 02/10/17 04:45 Sodium 142 Potassium 4.2 Chloride 110 H Carbon Dioxide 23 BUN 28.0 H Creatinine 1.1 Glucose 110 Calcium 8.1 L D Cardiac Enzymes 06/05/17 06/05/17 Range/Units 04:45 14:22 Troponin I 0.334 H D 0.212 H (0-0.12) ng/ml EKG Rhythm: Normal Sinus Rhythm - Physical Exam Respiratory Exam: Present: lungs clear Cardiovascular Exam: Present: regular rate and rhythm, systolic murmur - Airway Assessment Mallampati Score: II TMD: 3 Fingerbreadths Neck Extension: good Teeth: chipped teeth/crowns Overall Assessment: no airway concerns - ASA ASA Score: 3 - Plan Anesthesia: General TIVA - Discussion Discussion: Discussed risks/options/alternatives of anesthesia and questions answered. Patient consents. Nursing pain assessment noted. Present for Discussion: children, family member Attestation Statement: Prior to the delivery of any anesthetic medication, I examined the patient, developed the plan, obtained the patient's consent and discussed the risk and benefits of the procedure with the patient/guardian.
--- NOTE | 2017-02-10 16:54 | General Surgery Procedure Note ---
Date of Procedure: 02/10/17 Surgeon: Amalia Postoperative Diagnosis: Acute GI tract bleeding Procedure: Procedures EGD with biopsies. Operation Date: 02/10/17 15:00 <No data on this case meets the specified criteria> Estimated Blood Loss: See Anesthesia Record.
[2017-02-10] MEDS ORDERED: LIDOCAINE VISCOUS 2% ORAL LIQUID 15ml PO ONE (17:04)
[2017-02-10] MEDS ORDERED: POLYETHYL. GLYCOL 3350 BOTTLE 238 GM PO ONE (17:43)
[2017-02-10] MEDS ORDERED: LIDOCAINE 5% CREAM 15gm TOP PRN (17:43)
[2017-02-10] MEDS: LR 1,000 ML IV SCH (19:14)
[2017-02-10] MEDS: TAMSULOSIN 0.4 MG CAPSULE PO SCH ×2 (20:37→21:27)
[2017-02-11] MEDS: SALINE FLUSH 10ml SYRINGE IVF PRN (03:27)
[2017-02-11] MEDS: LEVOTHYROXINE 88 MCG TABLET PO SCH ×2 (06:03→12:58)
[2017-02-11] MEDS ORDERED: ACETAMINOPHEN 325 MG TABLET PO ONE (07:53)
[2017-02-11] MEDS ORDERED: DiphenhydrAMINE 50 MG/ML INJECTION IVP ONE (07:55)
[2017-02-11] MEDS ORDERED: EPHEDRINE 50mg/ml INJECTION ONE (09:02)
[2017-02-11] MEDS ORDERED: PROPOFOL 500 MG/50 ML VIAL IV ONE (09:02)
[2017-02-11] MEDS ORDERED: SALINE FLUSH 10ml SYRINGE ONE (09:03)
--- NOTE | 2017-02-11 10:40 | Operative Note ---
DATE OF OPERATION 02/10/2017 PREOPERATIVE DIAGNOSES 1. Acute gastrointestinal tract bleeding. 2. Acute blood loss anemia due to acute gastrointestinal tract bleeding. POSTOPERATIVE DIAGNOSES 1. Acute gastrointestinal tract bleeding. 2. Acute blood loss anemia due to acute gastrointestinal tract bleeding. 3. Small prepyloric antral gastric ulcer. 4. Antral gastritis. 5. Duodenitis. OPERATION Esophagogastroduodenoscopy with biopsies. SURGEON Dr. Amalia PRETTY TIVA ASA CLASS 3 FINDINGS The esophagus appeared completely normal. Esophageal mucosa was normal everywhere. There was no esophagitis. There were no esophageal erosions or ulcers. The mucosa at the cardia and body of the stomach appeared normal. The patient did have some antral gastritis. The patient did have one small antral gastric ulcer at the prepyloric area. There was some white fibrinous exudate at the base of this ulcer. This was a small ulcer. The patient did have some duodenitis. There were no duodenal erosions or ulcers. No bright red blood or old blood was seen at the upper gastrointestinal tract. The small gastric ulcer and the gastritis and the duodenitis did not appear to be prominent enough to cause the degree of acute gastrointestinal tract bleeding which this patient has had over the last few days. It is thought that the source for the acute gastrointestinal tract bleeding and blood loss anemia is not at the upper gastrointestinal tract. It is thought that the source for this bleeding is down at some level distal to the duodenum. There were no angiodysplasia lesions at the upper gastrointestinal tract. DESCRIPTION OF OPERATION The patient was brought to the endoscopy room. The patient was placed on a cart in the endoscopy room. The patient was placed in left lateral recumbent position on the cart. The patient was premedicated with intravenous sedation medication administered by the nurse buffet manager. The Olympus upper GI endoscope was used. The upper GI endoscope was introduced into the esophagus. The upper GI endoscope was advanced down through the esophagus and stomach and into the duodenum. The upper GI endoscope was then withdrawn from the duodenum back into the stomach. The upper GI endoscope was retroflexed and the gastroesophageal junction was viewed from below. The upper GI endoscope was straightened out. The stomach was examined further. The endoscopic biopsy forceps was used to obtain a sample of prepyloric antral gastric mucosa which was submitted for ISAURA test studies. The endoscopic biopsy forceps was used to obtain some biopsies of the gastric ulcer. These biopsy specimens were submitted for study by the pathologist. The upper GI endoscope was then withdrawn out through the stomach and esophagus and removed from the patient. Findings throughout the procedure were as described above. The patient did continue to receive intravenous sedation medication administered by the nurse buffet manager throughout the operation. The patient did appear to tolerate the operation well. RAYNE
--- NOTE | 2017-02-11 11:01 | General Surgery Procedure Note ---
Date of Procedure: 02/11/17 Surgeon: Amalia Postoperative Diagnosis: Acute GI tract bleeding Procedure: Procedures Operation Date: 02/10/17 15:00 Actual Procedures p Esophagogastroduodenoscopy with biopsy - Makr Holland MD Operation Date: 02/11/17 09:00 Actual Procedures p Colonoscopy - Mark Holland MD s Esophagogastroduodenoscopy - Mark Holland MD Estimated Blood Loss: See Anesthesia Record.
[2017-02-11] MEDS: PANTOPRAZOLE 40 MG INJECTION IVP SCH (11:30)
--- NOTE | 2017-02-11 12:33 | Anesthesia Postoperative Note ---
- Date and Time Date: 02/11/17 Time: 11:25 - Status Patient Participated in Evaluation: Patient Participated in Person Vital Signs: Temp Pulse Resp BP Pulse Ox 97.4 F 78 20 128/60 99 02/11/17 11:33 02/11/17 11:33 02/11/17 11:33 02/11/17 11:33 02/11/17 11:33 Respiratory Function: Airway Patent Cardiovascular Function: Regular Pulse EKG Rhythm: Normal Sinus Rhythm Pain Intensity: 0 Complications During Recover: None Apparent - Follow-Up Instructions Instructions: Per Surgeon
--- NOTE | 2017-02-11 12:49 | Operative Note ---
DATE OF OPERATION 02/11/2017 PREOPERATIVE DIAGNOSIS Acute gastrointestinal tract bleeding of uncertain source. POSTOPERATIVE DIAGNOSIS Acute gastrointestinal tract bleeding of uncertain source. OPERATION Total colonoscopy and esophagogastroduodenoscopy. SURGEON Dr. Amalia SINGLETARY ASA CLASS 4 FINDINGS The patient does have old dark red blood extending from the rectum all the way up to the cecum. There were no blood clots. There was no bright red blood anywhere. This was all old dark red blood and black blood which was distributed evenly throughout the colon all the way up from the rectum up to the cecum. No colon tumors were seen at the time of the procedure. No colon polyps were seen. There was no evidence of any inflammatory bowel disease. There was no ulceration of the colon anywhere. The patient does have some mild scattered colonic diverticulosis. There were a few diverticula at the left side of the colon. There were one or two diverticula at the right side of the colon. This was all very mild colonic diverticulosis. No individual diverticulum appeared to be the source of the bleeding. No angiodysplasia lesions were seen at the cecum or ascending colon anywhere. When the tip of the colonoscope was introduced through the ileocecal valve up into the terminal ileum, there was old dark red blood within the terminal ileum. The tip of the upper GI endoscope was able to be advanced quite a ways proximally up through the terminal ileum in this particular patient. Some old dark red blood clots did extend for quite a ways proximally up through the terminal ileum and ileum as far as the colonoscope was inserted. This did all suggest that the source for acute gastrointestinal tract bleeding was coming from a level proximal to the terminal ileum. No bright red blood was seen anywhere throughout the colon today. There was no inflammation at the terminal ileum. No angiodysplasia lesions were seen at the terminal ileum. The terminal ileum mucosa appeared normal. There were just some small amounts of old dark red blood scattered throughout the terminal ileum just like they were throughout the colon. The upper gastrointestinal tract was reexamined again today after the total colonoscopy procedure. The upper gastrointestinal tract was reexamined with esophagogastroduodenoscopy. The patient has a little bit of prepyloric antral gastritis. The patient has a little bit of duodenitis. There is a site at the prepyloric gastric antrum where some biopsies were performed yesterday at a very small ulcer site. Not one drop of old dark red blood or bright red blood was seen anywhere at the upper gastrointestinal tract today. The tip of the upper GI endoscope was advanced down through the duodenum for quite a ways beyond the duodenal bulb. No angiodysplasia lesions were seen. No bright red blood or old blood was seen anywhere at the upper gastrointestinal tract today. It was thought that the source for the acute gastrointestinal tract bleeding is located at some level beyond the duodenal bulb and postbulbar area of the duodenum. The patient has now had gastrointestinal tract bleeding for the last 7 days. He has now received transfusion of 6 units of packed red blood cells. The exact source for the bleeding was still not able to be determined at endoscopy today. DESCRIPTION OF OPERATION The patient was brought to the endoscopy room. The patient was placed on a cart in the endoscopy room. The patient was placed in left lateral recumbent position on the cart. The patient was premedicated with intravenous sedation medication administered by the nurse oncology consultant. The patient continued to receive this intravenous sedation medication throughout the operation. Total colonoscopy was performed. The Olympus colonoscope was used. The colonoscope was introduced into the rectum. The colonoscope was advanced all the way up through the rectum and colon all the way up to the cecum. The appendiceal orifice was visualized. The ileocecal valve was visualized. The tip of the colonoscope was introduced through the ileocecal valve up into the terminal ileum. The tip of the colonoscope was able to be advanced for quite a ways up through the terminal ileum in this particular patient. Findings throughout all this time were as described above. The colonoscope was withdrawn back out through the terminal ileum and through the ileocecal valve back into the cecum. The cecum and ascending colon were examined further. Irrigation was performed to wash away old blood and get a better look at the mucosa at the ascending colon. No obvious angiodysplasia lesions were seen anywhere at the ascending colon as this was done. The colonoscope was slowly withdrawn out through the colon. Irrigation was performed to wash away old blood during this time to get a better look at the mucosa of the colon. The colonoscope was slowly withdrawn all the way out through the colon and rectum and removed from the patient. Irrigation was performed during this time to wash away old blood and get a better look at the mucosa during this time. Digital rectal examination was performed. The patient was kept in left lateral recumbent position on the cart. The patient continued to receive intravenous sedation medication administered by the nurse oncology consultant. Esophagogastroduodenoscopy had been performed yesterday. Esophagogastroduodenoscopy was repeated again today. The Olympus upper GI endoscope was used. The upper GI endoscope was introduced into the esophagus. The upper GI endoscope was advanced down through the esophagus and stomach and into the duodenum. The upper GI endoscope was withdrawn from the duodenum back into the stomach. The upper GI endoscope was retroflexed and the gastroesophageal junction was viewed from below. The upper GI endoscope was straightened out. Stomach was examined further. The upper GI endoscope was then withdrawn out through the stomach and esophagus and removed from the patient. Findings throughout all this time were as described above. The patient did continue to receive intravenous sedation medication administered by the nurse oncology consultant throughout the operation. The patient did tolerate the operation well. RAYNE
[2017-02-11] MEDS: LR 1,000 ML IV SCH (12:50)
[2017-02-11] MEDS: FUROSEMIDE 20 MG TABLET PO SCH (12:58)
--- NOTE | 2017-02-11 13:21 | Discharge Summary ---
Discharge Information Date of admission: 02/09/17 13:32 Anticipated date of discharge: 02/11/17 Attending Physician: Sudha Fuller MD Primary care physician: Samson Edwards II, MD Consults: 02/09/17 Consult to Anesthesiology [CONS] Routine Consulting Provider: BERNDEN Mata Reason For Exam: ..... 02/09/17 14:23 Physician Consult [CONS] Routine Consulting Provider: Mark Holland Reason For Exam: GI bleed Ordering Provider has Notified Wire Coater: Yes 02/09/17 17:08 Physician Consult [CONS] Routine Consulting Provider: Marlene Perez Reason For Exam: chest pain, history of CAD Ordering Provider has Notified Wire Coater: No 02/10/17 17:43 Consult to Anesthesiology [CONS] Routine Consulting Provider: BRENDEN Mata Reason For Exam: Normal Procedure - Discharge Diagnosis (1) GI bleed Qualifiers: GI bleed type/associated pathology: unspecified gastrointestinal hemorrhage type Qualified Code(s): K92.2 - Gastrointestinal hemorrhage, unspecified Status: Acute (2) Leukocytosis, unspecified Status: Acute (3) Anemia associated with acute blood loss Status: Acute (4) Acute hypernatremia Status: Acute (5) Anxiety Status: Chronic (6) Overweight (BMI 25.0-29.9) Status: Chronic (7) BPH (benign prostatic hyperplasia) Status: Chronic (8) GERD (gastroesophageal reflux disease) Status: Chronic (9) Hypothyroidism Status: Chronic (10) Allergic rhinitis Status: Chronic (11) CAD (coronary artery disease) Status: Chronic (12) History of ID (myocardial infarction) Status: Chronic (13) History of aortic valve replacement with bioprosthetic valve Status: Chronic (14) Hx of CABG Status: Chronic (15) Hypertension Status: Chronic - Laboratory Labs: 02/11/17 05:00 02/10/17 04:45 History of Present Illness HPI: Jeffrey Moore is a pleasant 81-year-old male who presented to [facility] emergency department today, 02/09/17, for evaluation of intermittent chest pain and bloody stools. He reports that on 02/04/17 he had multiple, bright red liquid stools which progressively got darker in color as the day progressed. He was seen by his PCP, Dr. Edwards, on 02/05 and it was determined that he needed endoscopy. He then saw Dr. Holland on 02/07 for evaluation for endoscopy and underwent a thorough evaluation including labs in which he reportedly had a hemoglobin of 7, per the patient. He received a blood transfusion of 1 unit on 02/08. Last evening he states he was feeling better and went for a late dinner with his daughter at an [employer] restaurant. Around 1230 am this morning, he began having severe, intermittent chest pain which would occasionally radiate to his right back, below the right shoulder. He reports that his pain is burning in nature and span across his epigastric region extending into his mid chest. He states that he 1st began expressing similar symptoms and chest pain in 2013 and since that time, the episodes of pain have become more frequent. He has a significant history of CAD with stent placement in 2002 and CABG x 3 in 2013. He states that his chest pain currently is different than the chest pain he experienced when he had his ID prior to his stent placement in 2002. He reports that his pain is worse with stress and walking as well as laying down after eating past 6pm. Prior evaluation for his chest pain lead to a conclusion of esophageal spasms. Last EGD in 2015 showed mild gastritis. Over the past few years, he has found that nitroglycerin improves his chest pain. When he began experiencing chest pain last night, he took a nitro about every hour until he presented to the ED for further evaluation this morning, totalling about 9 tabs. He reports that his bloody stools have improved and only admits to 1 formed stool which he states was blood streaked this AM. He denies any recent illness, chills, headache, shortness of breath, nausea, vomiting or dysuria. He does admit to lightheadedness, generalized weakness and fatigue which has since resolved following his blood transfusion on 02/08. He also admits to chronic urinary frequency with small amounts secondary to his BPH. He denies any known fevers but admits that his temperature was elevated to 99 on 02/04. Upon arrival to the ED, documentation notes that he was asymptomatic. Labs were obtained and revealed leukocytosis with WBC 11.9, anemia with hemoglobin 7.3, platelets 185. Hypernatremia with sodium 145, potassium 4.1, elevated BUN 22, SCr 1.1 and glucose 101. UA was unremarkable. Chest x-ray was obtained and unremarkable. He was given Protonix in ED which he reports made him nauseous. Due to his reported GI bleed and acute anemia, Dr. Brice was consulted and Mr. Moore was accepted as an in-patient into the ICU for further evaluation, close monitoring for cardiac stability as well as deterioration secondary to acute bleed, IV fluids and surgical evaluation with expected endoscopy. His length of stay is expected to exceed more than 2 over nights. On exam, Mr. Moore is seen shortly after his arrival in ICU. He appears very anxious and starts complaining of nausea with dry heaves and spitting which improves with sitting completely upright and Zofran 4mg IV. Throughout the exam , he complains of chest pain and burning which radiates to his right mid back, inferior to his right shoulder and is not reproducible with palpation. He is given Ativan 0.5mg IV which quickly appears to make him more comfortable and he admits that his pain decreased to 2/10 with the ativan. Vital signs in ICU show hypertension with blood pressure 182/81, tachycardia heart rate 103, pulse ox 95% on room air. He frequently changes position in bed, moving the head of the bed up and down, seeking a more comfortable position, which he finds for shorts periods of time. Cardiac exam reveals tachycardia with S1 and S2 and prominent murmur noted. He has a history of bioprostetic aortic valve replacement in 2013. Lung sounds are clear to auscultation bilaterally. Abdomen is soft, distended and nontender with palpation. When asked where his pain is, he points to his epigastric region and upper abdomen. Hypoactive bowel sounds noted. 1+ edema noted to bilateral lower extremities with 2+ pedal pulses. He is alert, orientated and appears anxious on exam but is pleasant and cooperative. Hospital Course Hospital course: 02/09/2017 Pt admitted for GI bleed. Pt's Hgb has dropped from ~11 to 7 in the last 3-4 days. Pt was seen yesterday at clinic after referral from pcp for GI bleed and Hgb was found to be ~7 and one unit of blood was given as outpatient. Today at ED Hgb was still ~7 so pt was admitted for work up for GI bleed. 02/10/2017 -Pt received one unit of blood last night, Hgb this am was 6.3 so will give additional 2 units for a goal of 8-9 d/t demand ischemia (trop peaked at 0.334) . Unclear picture of upper vs. lower GI bleed, plan on EGD today and possibly colonoscopy tomorrow if no etiology is found. 02/11/2017 EGD done yesterday that did not show clear etiology of bleed. Pt continued to have more bright/dark red stools overnight. Colonoscopy and additional EGD was done and did not reveal clear source of bleed. Colonoscopy showed dark red blood trailing into the cecum but not able to go far enough to find the source. Discussed case with and he agreed to see pt at [facility] so decision was made to transfer pt to hospitalist team at [facility]. Pt has received total of 5 units of pRBC since Friday. This plan was discussed with the pt and he agreed to the transfer. Discharge Plan - Med Rec/Dispo Prescriptions: New Fluticasone Nasal Russell [Flonase] 1 spray EA NOSTRIL DAILY PRN bottle PRN Reason: Allergy Symptoms Continue Tamsulosin HCl 0.4 mg PO HS #0 cap Levothyroxine Sodium 88 mcg PO ACB #0 tab Nitroglycerin [Nitrostat] 0.4 mg SL Q5MIN PRN #0 tab PRN Reason: CHEST PAIN Fluticasone Nasal Russell [Flonase] 1 spray LISA DAILY PRN PRN Reason: Allergy Symptoms Discontinued Aspirin [Aspir 81] 1 tab PO DAILY #90 tab furosemide 20 mg tablet 20 mg PO QAM diltiazem ER 180 mg capsule,extended release 180 mg PO BID cap - Disposition 02 To [facility] Acute Care
--- NOTE | 2017-02-11 18:38 | Cardiology Consult Note ---
History of Present Illness Consult date: 02/09/17 Consult reason: chest pain Chief complaint: cp History of present illness: Mr. Gandhi is a complex 81-year-old male with significant past cardiac history as noted below he presents with chronic substernal chest burning going up and down the his chest and sometimes felt in the epigastric area with cramping and a lot of movement sensation "like a big warm " in the upper abdomen. His symptoms are typically triggered by spicy or solid food he also continued to drink beer daily or regularly. He presented to an [facility] emergency department on February 09 for evaluation of chest pain with bloody stools he is received a unit of packed red blood cells on outpatient basis he would've 7 [address] Oliveira on February 07 for endoscopy. Patient started feeling worse after dinner with his daughter at anytime restaurant said he had something spicy was a heavy meal and started having pain severe intermittent radiating to his back between shoulder blades burning and nature and spans across epigastric region into the mid chest as similar but worse to his symptoms in 2016 at that time triggered a cardiac workup by myself and coronary angiogram showed patent bypasses 3 and significant aortic regurgitation 3+ for which patient declined workup or surgery. Patient also has a long-standing history of intolerance to multiple medications including several beta blockers. 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 He lost to follow-up due to noncompliance patient convinced that his heart was okay. He says when he gets the chest burning as described above after something he ate , he does tend to get worse with emotional stress or if he started walking around but really is no different than what he had in 2016 again when he had a patent bypasses 3 on coronary angiogram. Mr. Gandhi and an evaluation in ER was found to have a hemoglobin of 6 admitted for blood transfusion hospitalist service with cardiac consultation and to monitor his cardiac status and clear him for anticipated endoscopies. Patient tells me in the past few months he could climb stairs although a upper and car race field without getting any chest pain although he might get low shoulder breath at the end. He says many other people could not climb a diet without trouble even younger people. He does have lower extremity edema controlled by taken diuretics Dermatological stress nuclear scan November 2015 was positive for mild angina 6 minutes and 30 seconds reversible ischemia in the posterior/lateral and inferior wall infarction fraction of 40% on stress images and 45% on rest images. In the same timeframe echocardiogram showed 3+ aortic regurgitation mild LV systolic dysfunction Coronary angiogram showed 70-80% stenosis mid LAD severe occlusion of a small diagonal branch severe occlusion of small codominant RCA 65% stenosis in the circumflex artery patent SHAHID to LAD patent inverted . Inverted Y SVG to posterior lateral branch and RCA Review of Systems - Constitutional Constitutional: Present: as per HPI, fatigue, weakness. Absent: chills, headache(s), night sweats, weight gain, weight loss - EENT Eyes: Present: as per HPI. Absent: diplopia - Respiratory Respiratory: Absent: cough, dyspnea, hemoptysis, dyspnea on exertion, wheezing, chest congestion, excessive phlegm production - Gastrointestinal Gastrointestinal: Present: hematochezia, melena, nausea - Musculoskeletal Musculoskeletal: Absent: deformity - Neurological Neurological: Present: dizziness. Absent: abnormal speech, convulsions, focal weakness, frequent falls, memory loss, numbness - Endocrine Endocrine: Absent: flushing, palpitations - Hematologic/Lymphatic Hematologic/Lymphatic: Absent: easy bleeding PFSH Patient Stated Medical History Cataracts Yes: BILATERAL Hearing Loss Yes Angina Yes Cardiac Arrhythmia Yes Coronary Artery Disease Yes Heart Murmur Yes Hypertension Yes Myocardial Infarction Yes Gastroesophageal Reflux Yes Disease Gastrointestinal Bleeding Yes Hx Benign Prostatic Yes Hyperplasia Clinic Medical History (Last Updated 02/11/17 @ 13:27 by Sudha Fuller MD) GERD (gastroesophageal reflux disease) (Acute Medical) Surgical History: 1) Hernia Repair 2001. 2) Open Heart Surgery - 08/19. 3) Heart Millie - 08/19/2014 Family History: Family History Mother Diabetes Heart attack Heart failure HTN (hypertension) High cholesterol Sister Diabetes Smoking status: Former smoker Alcohol intake frequency: 0-2 drinks per day Does patient use chewing tobacco?: No Medications Home Medications Medication Instructions Recorded Confirmed Type Levothyroxine Sodium 88 mcg PO ACB #0 tab 09/09/14 02/09/17 History Tamsulosin HCl 0.4 mg PO HS #0 cap 09/09/14 02/09/17 History Nitroglycerin [Nitrostat] 0.4 mg SL Q5MIN PRN #0 tab 11/08/15 02/09/17 History Fluticasone Nasal Shepherd [Flonase] 1 spray LISA DAILY PRN 02/09/17 02/09/17 History Allergies Allergy/AdvReac Type Severity Reaction Status Date / Time Penicillins Allergy Unknown Verified 02/09/17 10:49 Sulfa (Sulfonamide Allergy Unknown Verified 02/09/17 10:49 Antibiotics) citric acid AdvReac Intermediate Verified 02/09/17 10:49 caffeine AdvReac Verified 02/09/17 10:49 milk AdvReac Verified 02/09/17 10:49 Exam Vital signs: Temp Pulse Resp BP Pulse Ox 97.6 F 72 18 128/60 99 02/11/17 12:00 02/11/17 12:00 02/11/17 12:00 02/11/17 12:00 02/11/17 11:33 - Constitutional no acute distress, well nourished, cooperative - Routine HEENT Exam Head: Present: normocephalic, atraumatic Eye: Present: EOMI, PERRL - Routine Neck Exam Present: normal carotid upstroke. Absent: JVD, carotid bruit, lymphadenopathy, thyromegaly - Routine Chest/Breast/Axilla Exam Chest wall: Absent: tenderness, pacemaker - Routine Respiratory Exam Present: CTA bilaterally - Routine Cardiovascular Exam Present: RRR, S1, S2, murmur (3/6 systolic murmur 2 to 3/6 diastolic murmur along the left lower sternal border no S3 gallop). Absent: rubs, S3, S4, click - Routine Abdominal Exam Present: soft, normoactive bowel sounds, non tender, distended - Routine Extremities Exam Present: edema (1+ bilateral ankles). Absent: cyanosis, clubbing - Routine Back/Spine/Pelvis Exam Back/Spine: Present: full ROM - Routine Skin Exam Present: warm. Absent: cyanosis, erythema - Routine Neurological Exam Present: alert, oriented X3, CN II-XII intact, vision grossly intact, normal speech. Absent: sensory deficit, motor deficit, hemineglect, facial asymmetry - Routine Psychiatric Exam Present: normal affect, normal thought process Results 02/11/17 05:00 02/10/17 04:45 CBC labs and VS from 02/09 noted EKG interpretations - Dysrhythmias Sinus rhythms and dysrhythmias: sinus rhythm Ventricular dysrhythmias: ventricular premature complexes (no acute changes) - Blocks, axis, hypertrophy, ST abn AV and intraventricular conduction: left bundle branch block (fixed/intermittent , complete/incomplete) Assessment and Plan (1) Chest pain Status: Acute Chest pain is chronic and acutely worsened with signs of GI bleed. We'll follow serial troponins due to his CAD. Check 2-D echocardiogram regarding LV function and bioprosthetic aortic valve dysfunction/AI. Patient is cleared with low/acceptable risk for endoscopy no evidence of acute cardiac process and will follow patient along with you hit Thank you (2) GI bleed Status: Acute (3) Anxiety Status: Chronic (4) CAD (coronary artery disease) Status: Chronic (5) History of OK (myocardial infarction) Status: Chronic (6) History of aortic valve replacement with bioprosthetic valve Status: Chronic (7) Hx of CABG Status: Chronic (8) Hypertension Status: Chronic Hospital Course Summary Disclaimer: The visit summary below is not to be considered part of the above Progress Note. Hospital Course: 02/09/2017 Pt admitted for GI bleed. Pt's Hgb has dropped from ~11 to 7 in the last 3-4 days. Pt was seen yesterday at clinic after referral from pcp for GI bleed and Hgb was found to be ~7 and one unit of blood was given as outpatient. Today at ED Hgb was still ~7 so pt was admitted for work up for GI bleed. 02/10/2017 -Pt received one unit of blood last night, Hgb this am was 6.3 so will give additional 2 units for a goal of 8-9 d/t demand ischemia (trop peaked at 0.334) . Unclear picture of upper vs. lower GI bleed, plan on EGD today and possibly colonoscopy tomorrow if no etiology is found. 02/11/2017 EGD done yesterday that did not show clear etiology of bleed. Pt continued to have more bright/dark red stools overnight. Colonoscopy and additional EGD was done and did not reveal clear source of bleed. Colonoscopy showed dark red blood trailing into the cecum but not able to go far enough to find the source. Discussed case with and he agreed to see pt at [facility] so decision was made to transfer pt to hospitalist team at [facility]. Pt has received total of 5 units of pRBC since Friday. This plan was discussed with the pt and he agreed to the transfer. Sepsis Assessment - Evaluation Sepsis screening result: No Definite Risk - Focused Exam Vital Signs Temp Pulse Resp BP Pulse Ox 02/11/17 12:00 97.6 F 72 18 128/60 02/11/17 11:33 97.4 F 78 20 128/60 99 02/11/17 11:28 80 18 118/58 97 02/11/17 11:23 116/53 02/11/17 11:18 97.3 F 77 18 117/56 99 02/11/17 11:13 75 22 117/53 99 02/11/17 11:08 97.0 F 74 16 116/52 02/11/17 11:00 75 21 96/48 100 02/11/17 10:55 73 14 89/44 99 02/11/17 10:52 97.4 F 83 17 99 02/11/17 08:00 98.7 F 79 20 118/55 Respiratory exam: Present: CTA bilaterally. Absent: accessory muscle use, rales , respiratory distress, rhonchi, stridor, wheezes, crackles Cardiovascular exam: Present: RRR, S1, S2, murmur Capillary refill: < 2-3 Seconds
--- NOTE | 2017-02-11 18:50 | Cardiology Progress Note ---
Subjective Principal diagnosis: chest pain Interval history: Hiram is feeling somewhat better. His troponin had a slight elevation he was seen on February 10 and this is a late entry patient is not having any angina denies dyspnea feels better with a blood transfusion. Legs less swollen after diuretic. Review of systems no fever chills or night sweats orthopnea PND no cough or phlegm production still passing intermittent bloody bowel movements no vomiting no hematemesis or coffee-ground emesis did appear to be well composed and not manifesting signs of anxiety or depression issues at this time Exam Vital signs: afeb VSS 6/5 - Constitutional no acute distress, well developed, obese - Routine HEENT Exam Head: Present: normocephalic, atraumatic Eye: Present: EOMI, PERRL ENT: Present: mucous membranes moist - Routine Neck Exam Present: supple, normal carotid upstroke. Absent: JVD, carotid bruit, lymphadenopathy, thyromegaly - Routine Respiratory Exam Present: CTA bilaterally. Absent: decreased breath sounds, rales, wheezes - Routine Cardiovascular Exam Present: RRR, S1, S2, murmur (2/6 systolic 2/6 diastolic) - Routine Abdominal Exam Present: soft, non distended. Absent: normoactive bowel sounds, tenderness - Routine Extremities Exam Present: no edema, non tender, pulses intact. Absent: cyanosis, clubbing - Routine Skin Exam Present: intact, dry, warm. Absent: cyanosis - Routine Neurological Exam Present: alert, oriented X3, CN II-XII intact, normal speech. Absent: motor deficit - Routine Psychiatric Exam Present: normal affect, cooperative, good insight, good judgment. Absent: depressed, anxious Progress Note-A&P (1) Chest pain Status: Acute Assessment and plan: Elevated troponin appears to be due to demand ischemia/type II MS. Patient still be okay to proceed with endoscopy later today with Dr. BINGHAM (2) GI bleed Status: Acute (3) Anxiety Status: Chronic (4) CAD (coronary artery disease) Status: Chronic (5) History of MS (myocardial infarction) Status: Chronic (6) History of aortic valve replacement with bioprosthetic valve Status: Chronic (7) Hx of CABG Status: Chronic (8) Hypertension Status: Chronic - Time Spent With Patient Total time spent is greater than 50% in coordination of care (as documented) at patient's floor/unit and/or counseling patient: 25 - 35 minutes Sepsis Assessment - Evaluation Sepsis screening result: No Definite Risk - Focused Exam Vital Signs Temp Pulse Resp BP Pulse Ox 02/11/17 12:00 97.6 F 72 18 128/60 02/11/17 11:33 97.4 F 78 20 128/60 99 02/11/17 11:28 80 18 118/58 97 02/11/17 11:23 116/53 02/11/17 11:18 97.3 F 77 18 117/56 99 02/11/17 11:13 75 22 117/53 99 02/11/17 11:08 97.0 F 74 16 116/52 02/11/17 11:00 75 21 96/48 100 02/11/17 10:55 73 14 89/44 99 02/11/17 10:52 97.4 F 83 17 99 02/11/17 08:00 98.7 F 79 20 118/55 Respiratory exam: Present: CTA bilaterally. Absent: accessory muscle use, rales , respiratory distress, rhonchi, stridor, wheezes, crackles Cardiovascular exam: Present: RRR, S1, S2, murmur Capillary refill: < 2-3 Seconds
--- NOTE | 2017-02-11 18:56 | Cardiology Progress Note ---
Subjective Principal diagnosis: chest pain Interval history: Patient seen 02/11/2017 about 9 AM Hiram is feeling somewhat betterafter PRBC TX. His troponin is trending down hemoglobin is trending down to unfortunately as he continued to have intermittent bloody bowel movement/breath red blood per rectum he has received I believe 7 units of blood so far. Denies angina or chest pain denies dyspnea or lower extremity edema improved no dizziness or syncope Review of systems no fever chills or night sweats orthopnea PND no cough or phlegm production still passing intermittent bloody bowel movements no vomiting no hematemesis or coffee-ground emesis did appear to be well composed and not manifesting signs of anxiety or depression issues at this time Exam Vital signs: Temp Pulse Resp BP Pulse Ox 97.6 F 72 18 128/60 99 02/11/17 12:00 02/11/17 12:00 02/11/17 12:00 02/11/17 12:00 02/11/17 11:33 - Constitutional no acute distress, obese - Routine HEENT Exam Head: Present: normocephalic, atraumatic Eye: Present: EOMI, PERRL ENT: Present: mucous membranes moist - Routine Neck Exam Present: supple, full ROM, normal carotid upstroke. Absent: JVD, carotid bruit - Routine Chest/Breast/Axilla Exam Chest wall: Absent: tenderness - Routine Respiratory Exam Present: CTA bilaterally - Routine Cardiovascular Exam Present: RRR, S1, S2, murmur (2/6 diastolic murmur and 3/6 systolic ejection murmur/). Absent: JVD - Routine Abdominal Exam Present: soft, non distended. Absent: normoactive bowel sounds (decreased) - Routine Extremities Exam Present: pulses intact, normal capillary refill. Absent: cyanosis, clubbing, edema - Routine Back/Spine/Pelvis Exam Back/Spine: Present: full ROM - Routine Skin Exam Absent: cyanosis, erythema, rash - Routine Neurological Exam Present: alert, oriented X3, CN II-XII intact, normal speech. Absent: motor deficit Progress Note-A&P (1) Chest pain Status: Acute Assessment and plan: Cardiac status remained stable no angina no active ischemic symptoms or CHF decompensation (2) GI bleed Status: Acute (3) Anxiety Status: Chronic (4) CAD (coronary artery disease) Status: Chronic (5) History of SC (myocardial infarction) Status: Chronic (6) History of aortic valve replacement with bioprosthetic valve Status: Chronic (7) Hx of CABG Status: Chronic (8) Hypertension Status: Chronic - Time Spent With Patient Total time spent is greater than 50% in coordination of care (as documented) at patient's floor/unit and/or counseling patient: Greater than 35 minutes Sepsis Assessment - Evaluation Sepsis screening result: No Definite Risk - Focused Exam Vital Signs Temp Pulse Resp BP Pulse Ox 02/11/17 12:00 97.6 F 72 18 128/60 02/11/17 11:33 97.4 F 78 20 128/60 99 02/11/17 11:28 80 18 118/58 97 02/11/17 11:23 116/53 02/11/17 11:18 97.3 F 77 18 117/56 99 02/11/17 11:13 75 22 117/53 99 02/11/17 11:08 97.0 F 74 16 116/52 02/11/17 11:00 75 21 96/48 100 02/11/17 10:55 73 14 89/44 99 02/11/17 10:52 97.4 F 83 17 99 02/11/17 08:00 98.7 F 79 20 118/55 Respiratory exam: Present: CTA bilaterally. Absent: accessory muscle use, rales , respiratory distress, rhonchi, stridor, wheezes, crackles Cardiovascular exam: Present: RRR, S1, S2, murmur Capillary refill: < 2-3 Seconds
--- NOTE | 2017-02-12 11:47 | Echocardiogram ---
DATE INDICATION Chest pain in a patient with prior CABG, bioprosthetic aortic valve with significant aortic regurgitation, declined intervention. Came in with acute GI bleed. He was lost to follow up in the past due to noncompliance. He also has lower extremity edema and chronic congestive heart failure. He declined intervention. TECHNICAL QUALITY: Technically good 2D, M-mode and Doppler echocardiographic images were submitted for interpretation. FINDINGS 1. CARDIAC CHAMBERS. Left atrium is enlarged, measures 4.6 cm. Left ventricle enlarged, measures 6.2 cm. Right ventricle appears prominent with good contractility. Aortic root diameter is normal. 2. LV FUNCTION. Wall thickness measures 10 mm. Wall motion analysis is abnormal due to an echogenic and severely hypokinetic posterior wall particularly in the inferoseptal and inferior wall, appear hypokinetic to akinetic. LV systolic dysfunction of a mild degree is present. Accurate ejection fraction is difficult to give but estimated at 40-50%. Diastolic function assessment shows E/A ratio of 0.7. 3. VALVES. Aortic valve is replaced by a bioprosthesis. On the short axis view, there appears to be a small lucent crescent shaped area present anteriorly although color flow Doppler does not show regurgitation through that particular area. No obvious abnormality is noted on the valve leaflets although visualization is limited. Aortic valve opening appears to be preserved. Mitral valve exhibits heavy annular calcification posteriorly and anteriorly that spreads to involve both leaflets. Heavy calcification and thickening is present. Valve opening is restricted visually to a moderate degree. 4. DOPPLER. Doppler shows moderate to severe aortic regurgitation. Peak flow velocity at the aortic valve level over 3.6 m/sec with peak and mean pressure gradient of 51 and 26 mmHg. Peak flow velocity at the LVOT level is 1.3 m/sec. are hemodynamics of moderate aortic stenosis. There is moderate to severe aortic regurgitation best estimated on PLAX view. Appears to be predominantly posterior jet, again surprisingly not seen very well on the short axis view. There is mild insufficiency present involving the mitral, tricuspid and pulmonic valves. Mitral stenosis study shows a mean pressure gradient of 8 mmHg. Peak gradient of 17 mmHg. Inflow velocity of 2.1 m/sec. These findings are consistent with hemodynamics of moderate mitral stenosis. Peak flow velocity at the LVOT level was 1.5 cm/sec. 5. There is no evidence of pericardial effusion, intracardiac masses or demonstrable shunts. IMPRESSION 1. Left atrial enlargement. 2. LV enlargement. 3. Cardiomyopathy. Ejection fraction estimated about 45%. 3. Abnormal bioprosthetic aortic valve function, with hemodynamics of moderate aortic stenosis. Mean pressure gradient of 30 mmHg and moderate to severe aortic regurgitation. 4. Heavy mitral annular calcification with hemodynamics of moderate mitral stenosis, mean pressure gradient of 8 mmHg (at a heart rate of 85 beats per minute). 5. Evidence of prior inferior wall myocardial infarction (see regional wall motion abnormality at the left ventricle above). 6. Mild mitral regurgitation. 7. Mild tricuspid regurgitation. 8. Mild pulmonic insufficiency. 9. Systolic PA pressure estimated ate 34 mmHg. 10. Central venous pressure is low to normal. 11. No evidence of pericardial effusion, intracardiac masses or demonstrable shunts. MTDD
== END 2017-02-11 15:13 | disposition short-term general hospital (02) | DRG 378 ==
LOC: ED 10:09 → CCU 13:32
PROVIDERS: ADMIT Internal Medicine; ATTEND Internal Medicine
PROC: END.EGD (2017-02-10 15:00)